=== PATIENT | female | born 1945 | race Caucasian/White ===

== ENCOUNTER 2023-12-02 22:02 | Outpatient (REF) | payer MEDICARE, SELFPAY ==
[2023-12-02 22:50] LABS: ALT 23 U/L (14-59); AST 18 U/L (15-37); Albumin 3.5 g/dL (3.4-5.0); Alkaline Phosphatase 100 U/L (46-116); Anion Gap 6.4 mmol/L (3-11); BUN 11 mg/dL (7-18); Bilirubin, Total 0.5 mg/dL (0.2-1.0); CO2 30.6 mmol/L (21.0-32.0); CREATININE 0.8 mg/dL (0.55-1.02); Calcium 9.1 mg/dL (8.5-10.1); Chloride 106 mmol/L (98-107); Estimated GFR 75.84 (mL/min/1.73m2); Glucose 121 mg/dL (74-106); Potassium 4.1 mmol/L (3.5-5.1); Sodium 143 mmol/L (136-145); Total Protein 6.9 g/dL (6.4-8.2)
[2023-12-03 13:59] LABS: Calculated LDL 101 mg/dL (<100); Cholesterol 204 mg/dL (<200); HDL Cholesterol 82 mg/dL (40-60); Triglyceride 108 mg/dL (<150)
== END 2023-12-02 22:03 | disposition home or self-care (01) ==
LOC: NCHCN 22:02
PROVIDERS: PCP Internal Medicine; Visit Provider Nurse Practitioner Family
DX: Z00.00 Encounter for general adult medical examination without abnormal findings (principal)
CPT/HCPCS: 80053; 80061

== ENCOUNTER 2023-12-23 17:38 | Outpatient (REF) | payer MEDICARE, SELFPAY ==
[2023-12-23 15:34] LABS: Anion Gap 8.4 mmol/L (3-11); BUN 11 mg/dL (7-18); CO2 28.6 mmol/L (21.0-32.0); CREATININE 0.8 mg/dL (0.55-1.02); Calcium 9.1 mg/dL (8.5-10.1); Chloride 106 mmol/L (98-107); Estimated GFR 75.84 (mL/min/1.73m2); Glucose 104 mg/dL (74-106); Potassium 4.1 mmol/L (3.5-5.1); Sodium 143 mmol/L (136-145)
[2023-12-23 15:41] LABS: Hemoglobin A1C 6.1 % (<5.7)
== END 2023-12-23 17:39 | disposition home or self-care (01) ==
LOC: NCHCN 17:38
PROVIDERS: PCP Internal Medicine; Referring Provider Nurse Practitioner Family; Visit Provider Nurse Practitioner Family
DX: I10 Essential (primary) hypertension (principal); R73.9 Hyperglycemia, unspecified
CPT/HCPCS: 80048; 83036

== ENCOUNTER 2025-03-31 12:46 | Outpatient (REF) | payer MEDICARE, SELFPAY ==
[2025-03-31 15:56] LABS: Anion Gap 8.6 mmol/L (3-11); BUN 14 mg/dL (7-18); CO2 29.4 mmol/L (21.0-32.0); CREATININE 0.7 mg/dL (0.55-1.02); Calcium 9.1 mg/dL (8.5-10.1); Chloride 106 mmol/L (98-107); Estimated GFR 87.92 (mL/min/1.73m2); Glucose 106 mg/dL (74-106); Sodium 144 mmol/L (136-145)
== END 2025-03-31 12:47 | disposition home or self-care (01) ==
LOC: NCHCN 12:46
PROVIDERS: PCP Internal Medicine; Visit Provider Nurse Practitioner Family
DX: I10 Essential (primary) hypertension (principal)
CPT/HCPCS: 80048

== ENCOUNTER 2025-04-22 07:54 | Day surgery (SDC) | payer MEDICARE, SELFPAY ==
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
[2025-04-22 08:35] VITALS: BP 174/93; PULSE 75; RESP 12; TEMP 36.5; O2SAT 97
[2025-04-22 08:41] VITALS: BMI 18.5
[2025-04-22] MEDS: Tropicam./Phenyleph. (1/2.5%) 5 ML BTL OS ×3 (08:47→08:59)
[2025-04-22] MEDS: Tetracaine 0.5% 4 ML BTL OS (10:18)
[2025-04-22] MEDS: Povidone-Iodine Ophth 30 ML BTL (10:18)
[2025-04-22] MEDS: Duovisc Viscoelastic System EACH 1 EACH (10:24)
[2025-04-22] MEDS: Lidocaine 1% Pres-Free 5 ML VIAL (10:25)
[2025-04-22] MEDS: Phenylephrine/Lidocaine (15/10) MG/ML 1 ML VIAL (10:25)
[2025-04-22] MEDS: Balanced Salt Soln.-PLUS 500 ML BAG OP (10:27)
[2025-04-22] MEDS: Trypan Blue 0.06% 0.5 ML SYR (10:30)
[2025-04-22] MEDS: Moxifloxacin-PF 1 MG/ML VIAL (10:49)
[2025-04-22] MEDS: Prednisolone 1%, Moxifloxacin 0.5%, Bromfenac 0.09% 5.6ML BTL OS (10:49)
[2025-04-22 10:52] VITALS: BP 138/82; PULSE 79; RESP 16; TEMP 35.9; O2SAT 99
--- NOTE | 2025-04-22 10:53 | W.PM.DSUDISC ---
Date of service: 04/22/25 Discharge Plan Disposition Patient Disposition: Home Discharge Details Attending Provider: Pako August Primary Care Provider: Filipe Galvan Home Meds and New Rx's Prescriptions: No Action olmesartan 20 mg tablet 20 mg PO DAILY metronidazole [MetroCream] 0.75 % cream 1 applic topical BID Discharge Instructions Stand Alone Forms: D[facility] Post-Op Cataract, Karthik Ellis (DSU) Discharge Orders Discharge Orders: Discharge Order (Routine); Ordered 04/22/25 Ordered By: Pako August DS: Diagnosis Discharge Diagnosis (1) Nuclear age-related cataract, left eye: Status: Resolved (2) Cortical age-related cataract, left eye: Status: Resolved
--- NOTE | 2025-04-22 10:54 | ROE_ITS ---
Operative Note Operative Note PRE-OP DIAGNOSIS: Dense nuclear/cortical cataract, left eye Poorly dilating pupil, left eye POST-OP DIAGNOSIS: same PROCEDURE: Cataract extraction using phacoemulsification with intraocular lens implant, left eye Pupillary dilation and iris stabilization with pupillary expansion device SURGEON: Pako August ANESTHESIA TYPE: Local By Surgeon and MAC Refer to Anesthesia Record PATHOLOGY: none sent COMPLICATIONS: None Patient was transported to: same day Patient's condition: stable Implants: Tung Clareon [id number] Indications: Progressive decreased vision due to cataract, left eye Poorly dilating pupil, left eye Procedure Description: CATARACT SURGERY OPERATIVE REPORT PREOPERATIVE DIAGNOSIS: Dense nuclear/cortical cataract, left eye Poorly dilating pupil, left eye POSTOPERATIVE DIAGNOSIS: Same OPERATION: Cataract extraction using phacoemulsification with posterior chamber intraocular lens implant, left eye. Pupillary dilation and iris stabilization with pupillary expansion device IOL: IOL Dental Amalgam Processor/Model: Tung Clareon [id number] IOL Power: + 25.0 diopters IOL Serial Number: [id number] Optic Diameter: 6.0mm Haptic/Overall Diameter: 13.0mm PHACO INFO: Tung Chatterbox Labsurion Vision System with OZil and Active Fluidics Cumulative Dispersed Energy (CDE): 11.45 seconds SURGEON: Pako August MD, FELICIANO ANESTHESIA: Monitored Anesthesia Care (MAC), with local sub-tenon's anesthetic infiltration COMPLICATIONS: None SPECIMENS: None INDICATIONS FOR PROCEDURE: The patient is a 79-year-old lady with history of diminished visual acuity in her left eye secondary to the development of dense nuclear/cortical cataract. She is significantly symptomatic that she desires cataract surgery in attempt to improve and maximize her vision. The option of cataract surgery was offered to the patient and she wished to proceed. See office notes for detailed information. PROCEDURE: The correct surgical eye was identified and marked as the left eye and the pupil was dilated in the preoperative area using mydriatics and cycloplegics. The dilated pupil size was 3.5 mm. The patient elected to proceed without oral sedation. The patient was brought to the operating room where cardiopulmonary monitoring was instituted and surgical time-out was perfo rmed, confirming the correct operative eye and IOL power. Topical anesthesia was administered and ophthalmic povidone-iodine 5% was instilled into the conjunctival fornices. The ivy-ocular area was prepped with Betadine 10% solution and draped in the usual sterile fashion for intraocular surgery, including an aperture drape. A Tegaderm transparent film dressing was cut in half and used to cover the lashes and lid margins. Care was taken to sequester the lashes and lid margins under the Tegaderm dressing. A lid speculum was placed between the lids of the operative eye and the Tung LuxOR Revalia operating microscope was maneuvered into position. Valeri scissors were then used to make a conjunctival buttonhole approximately 6mm posterior to the limbus in the inferonasal quadrant. Blunt dissection was carried out to expose bare sclera, and a blunt-tipped sub-tenon?s anesthesia cannula was introduced and passed posteriorly along the globe where non- preserved plain lidocaine was injected into posterior sub-Tenon?s space. A sideport knife was used to make a paracentesis port. Intraocular phenylephrine/lidocaine was injected into the anterior chamber. The anterior chamber was then filled with viscoelastic. A keratome knife was used construct a two-plane clear corneal tunnel extending 2.0mm into clear cornea. A 7.0 mm pupillary expansion device was inserted into the pupillary space and engaged with the Kuglen hook. The cohesive viscoelastic was then removed using the irrigation/aspiration handpiece. VisionBlue was injected into the anterior chamber and painted over the anterior lens capsule and left to sit for 30 seconds, and was then irrigated out using balanced salt solution. Viscoat was then used to fill the anterior chamber. A flap was raised on the an terior capsule and capsulorhexis forceps were used to complete a continuous curvilinear capsulorhexis of 5.5 mm. Balanced salt solution was then used to perform cortical cleaving hydrodissection and nuclear hydrodelineation until the lens could be freely rotated within the capsular bag. The lens nucleus was then disassembled and removed within the capsular bag and iris plane using phacoemulsification. Residual cortical material was removed using the irrigation/aspiration handpiece. The posterior capsule was carefully polished to remove as much residual lens epithelial cells as safely possible. The capsular bag was then inflated and the anterior chamber deepened with viscoelastic. The lens implant described above was inserted into the capsular bag using the Tung Autonome Injector. A Kuglen hook was used to dial the IOL into position. The pupil expansion device was then removed in the reverse order of its insertion. Residual viscoelastic was then removed first from posterior to the IOL, then from the anterior chamber using the I/A handpiece. The lens implant was noted to center nicely within the capsular bag. The incisions were stromally hydrated, and the anterior chamber was reformed using BSS. Then 0.5cc of moxifloxacin 1.0mg/ml were injected into the capsular bag and anterior chamber. The incisions were checked with a Weck spear and found to be secure. Several drops of ophthalmic povidone-iodine 5% were then applied to the eye followed by two drops of combination steroid/NSAID/antibiotic solution. The drapes were removed and a clear plastic protective eye shield was placed over the eye. The patient was then returned to Same Day Surgery in stable condition. Date of Procedure: 04/22/25
--- NOTE | 2025-04-22 11:00 | W.ANESPOSTOP ---
Postoperative Evaluation Date, Time and Location Date Performed: 04/22/25 Time Performed: 11:00 Patient Location: Day Surgery Unit Vital Signs Most Recent Imported Vital Signs: Most Recent Vital Signs Temp Pulse Resp BP Pulse Ox 35.9 C L 79 16 138/82 99 04/22/25 10:52 04/22/25 10:52 04/22/25 10:52 04/22/25 10:52 04/22/25 10:52 Pain Score Most Recent Pain Score: Most Recent Pain Score Pain Level 0 04/22/25 10:52 Assessment Mental Status: Awake (Alert & Oriented to Patient Baseline) Airway and Respiratory Function: Patent airway with normal (patient baseline) respiratory exam Cardiovascular Function: Hemodynamically Stable Hydration Status: Adequately Hydrated Nausea & Vomiting: No Nausea or Vomiting Pain: Pt. Denies Any Pain Peripheral Nerve Block: Patient did not receive a nerve block
== END 2025-04-22 11:20 | disposition home or self-care (01) ==
LOC: SUR 07:56
PROVIDERS: PCP Internal Medicine; Visit Provider Ophthalmology
PROC: (CPT 66982; principal; 2025-04-22 09:45)
DX: H25.12 Age-related nuclear cataract, left eye (principal); H25.012 Cortical age-related cataract, left eye; H21.562 Pupillary abnormality, left eye
CPT/HCPCS: 66982; 00123; V2632; J2003